=== PATIENT | male | born 1980 | race African-American/Black ===

== ENCOUNTER 2020-10-11 22:14 | Emergency (ER) | payer OTHER ==
[~2020-10-11] VITALS: Ht 182.9 cm; Wt 100.0 kg
[2020-10-11 22:29] VITALS: BP 136/82
[2020-10-11] MEDS ORDERED: IBUPROFEN 400 MG TABLET. PO ONE (23:00)
[2020-10-11] MEDS ORDERED: ACETAMINOPHEN 500 MG TABLET PO ONE (23:00)
[2020-10-11] MEDS ORDERED: LIDOCAINE (700MG/PATCH) PATCH. TD ONE (23:00)
--- NOTE | 2020-10-11 23:07 | PHYS DOC ---
Past History Past Medical History: No Pertinent History Past Surgical History: Other Additional Past Surgical Histo: NOSE SX Alcohol Use: None Adult General Chief Complaint Chief Complaint: SHOULDER INJURY HPI HPI Patient is a 40-year-old male, otherwise healthy presents with left shoulder pain. States he has had pain in the area off and on for the last 3 years, burning in nature. 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 States by the end of the day it aches, 5 out of 10, dull and achy in nature. States in no way is it stopping him from working or decreased his range of motion but just wanted to see what was going on. Denies any traumas, sports injuries, falls ever or to the area. Denies any numbness/weakness/tingling. Review of Systems Review of Systems Constitutional: Denies fever or chills [] Eyes: Denies change in visual acuity, redness, or eye pain [] HENT: Denies nasal congestion or sore throat [] Respiratory: Denies cough or shortness of breath [] Cardiovascular: No additional information not addressed in HPI [] GI: Denies abdominal pain, nausea, vomiting, bloody stools or diarrhea [] : Denies dysuria or hematuria [] Musculoskeletal: Denies back pain or joint pain [] Integument: Denies rash or skin lesions [] Neurologic: Denies headache, focal weakness or sensory changes [] Endocrine: Denies polyuria or polydipsia [] All other systems were reviewed and found to be within normal limits, except as documented in this note. Current Medications Current Medications Current Medications Medications (Trade) Dose Ordered Sig/Heron Start Time Stop Time Status Last Admin Dose Admin Acetaminophen (Tylenol) 1,000 mg 1X ONCE 10/11/20 23:00 10/11/20 23:01 DC 10/11/20 22:59 1,000 MG Ibuprofen (Motrin) 800 mg 1X ONCE 10/11/20 23:00 10/11/20 23:01 DC 10/11/20 23:00 800 MG Lidocaine (Lidoderm) 1 patch ONCE ONCE 10/11/20 23:00 10/11/20 23:01 DC 10/11/20 23:00 1 PATCH Allergies Allergies Allergies Coded Allergies Type Severity Reaction Last Updated Verified No Known Drug Allergies 10/11/20 No Physical Exam Physical Exam Constitutional: Well developed, well nourished, no acute distress, non-toxic appearance. [] HENT: Normocephalic, atraumatic, bilateral external ears normal, oropharynx moist, no oral exudates, nose normal. [] Eyes: conjunctiva normal, no discharge. [] Neck: Normal range of motion, no tenderness, supple, no stridor. [] Cardiovascular:Heart rate regular rhythm, no murmur [] Lungs & Thorax: Bilateral breath sounds clear to auscultation [] Skin: Warm, dry, no erythema, no rash. [] Back: No tenderness, Extremities: Left shoulder has normal range of motion, capillary refill, pulses and no deformities. Normal neurovascular exam.] Neurologic: Alert and oriented X 3, normal motor function, normal sensory function, no focal deficits noted. [] Psychologic: Affect normal, judgement normal, mood normal. [] Current Patient Data Vital Signs Vital Signs Date Time Temp Pulse Resp B/P (MAP) Pulse Ox O2 Delivery O2 Flow Rate FiO2 10/11/20 22:29 96.8 75 18 136/82 (100) 96 Room Air EKG EKG [] Radiology/Procedures Radiology/Procedures [] Heart Score Risk Factors: Risk Factors: DM, Current or recent (<one month) smoker, HTN, HLP, family history of CAD, obesity. Risk Scores: Risk Factors: DM, Current or recent (<one month) smoker, HTN, HLP, family history of CAD, obesity. Course & Med Decision Making Course & Med Decision Making Patient is a 40-year-old male who presents with 3 years of intermittent shoulder discomfort Vital signs not concerning. Physical exam noted above. Patient given Tylenol, ibuprofen and Lidoderm patch. Exam suggestive of musculoskeletal or radiculopathy. Discussed all findings with patient and advised on pain control at home. Given a sling. Advised to follow-up with primary care physician to discuss ongoing shoulder discomfort and need for MRI. Patient grateful, verbalized understanding and agreed with plan of discharge. [] Dragon Disclaimer Dragon Disclaimer This electronic medical record was generated, in whole or in part, using a voice recognition dictation system. Departure Departure: Disposition: ADMITTED INPT THIS HOSP Condition: GOOD Referrals: CANDICE MIN MD Patient Instructions: Cervical Radiculopathy, [id number], RICE - Routine Care for Injuries, [id number], Rotator Cuff Injury Additional Instructions: Please read all the attached information. Your exam was suggestive of some sort of musculoskeletal injury including but not limited to a pinched nerve, torn muscle or other soft tissue injury. Please follow-up as soon as you can with a primary care physician in your local area to discuss your ED visit and need for outpatient MRI. Please go back to your nearest emergency department if you have any new or concerning symptoms. SHAHEEN VIDALES MD Oct 11, 2020 23:07
== END 2020-10-11 23:19 | disposition home or self-care (01) ==
LOC: EEVIPCON 22:14 → ER 22:14
DX: M25.512 Pain in left shoulder (principal)
CPT/HCPCS: 99284